=== PATIENT | male | born 1980 | race Caucasian/White ===

== ENCOUNTER 2017-02-22 21:14 | Emergency (ER) | payer OTHER ==
[2017-02-22 21:19] VITALS: BP 130/91
[2017-02-22] MEDS ORDERED: predniSONE TAB* 20 MG PO ONE (22:55)
[2017-02-22] MEDS ORDERED: Methocarbamol TAB* 500 MG PO ONE (22:55)
--- NOTE | 2017-02-22 23:06 | ED ---
Anu Handy Thomas, scribed for Abigail Long MD on 02/22/17 at 2223 . Back Pain - HPI Summary HPI Summary: The pt is a 36 y/o M accompanied by his fiance presenting to the ED c/o low back pain that began today at 20:45. States he was just bending down when the pain started, no trauma. The pain radiates to the L leg. The pt rates the pain 10/10. The pain is alleviated by nothing. The pain is aggravated by movement. Pt additionally c/o L leg numbness. Pt denies hematuria, dysuria, abd pain, N/ V. No fever, no incontinence. The pt did not take any medications for the pain MOLDER VACUUM. The patient is previously healthy and denies a PMHx. PSHx: rotator cuff repair L shoulder, appendectomy, inguinal hernia on R side, tendon repair right forearm. SHx: rare alcohol, no illicit drugs, smoker, works at [employer]. FHx: CA, thyroid problems. The pt was seen 02/22/17 "at the hospital" and prescribed tramadol #15 tabs per [facility]. Pt had to be prompted to tell me he had this prescription, states it was for his neck. States he didn't take them because they don't work. States he is allergic to ASA and demerol and that demerol gives him anaphylactic shock. - History of Current Complaint Chief Complaint: EDBackInjuryPain Stated Complaint: BACK INJURY Time Seen by Provider: 02/22/17 22:10 Hx Obtained From: Patient, Family/Flame Burner - diego Hollins Onset/Duration: Sudden Onset Onset/Duration: Started Hours Ago - 21:00, Atraumatic, Still Present Timing: Constant Back Pain Location: Is Discrete @ - left lumbar paraspinous Severity Initially: Severe Severity Currently: Severe Pain Intensity: 10 Pain Scale Used: 0-10 Numeric Character: Sharp, Spasmodic Aggravating Symptom(s): Movement Alleviating Symptom(s): Nothing Associated Signs And Symptoms: Positive: Numbness - L leg. Negative: Fever, Abdominal Pain, Other - NEG: hematuria, dysuria, N/V - Risk Factors AAA Risk Factors: Negative TAD Risk Factors: Negative Cauda Equina Risk Factors: Negative Epidural Abscess Risk Factors: Negative - Allergies/Home Medications Allergies/Adverse Reactions: Allergies Allergy/AdvReac Type Severity Reaction Status Date / Time Aspirin Allergy Hives Verified 02/22/17 21:29 Meperidine [From Demerol HCl] Allergy Anaphylatic Verified 02/22/17 21:29 Shock PMH/Surg Hx/FS Hx/Imm Hx Previously Healthy: Yes Respiratory History: Denies: Hx Chronic Obstructive Pulmonary Disease (COPD) Sensory History: Denies: Hx Legally Blind - Surgical History Surgery Procedure, Year, and Place: rotator cuff sx L shoulder, appy, inguinal hernia R side, tendon repair RFA - Immunization History Date of Tetanus Vaccine: utd Date of Influenza Vaccine: none Infectious Disease History: No Infectious Disease History: Denies: Traveled Outside the [place] in Last 30 Days - Family History Known Family History: Positive: Other - POS: CA, "thyroid problems" - Social History Occupation: Employed Full-time Alcohol Use: Rare Substance Use Type: Reports: None Smoking Status (MU): Smoker, Current Status Unknown Review of Systems Constitutional: Negative Negative: Fever Eyes: Negative ENT: Negative Cardiovascular: Negative Respiratory: Negative Gastrointestinal: Negative Negative: Abdominal Pain, Vomiting, Nausea Genitourinary: Negative Negative: dysuria, hematuria Positive: Other - POS: back pain that radiates to L leg Skin: Negative Positive: Numbness - L leg Psychological: Normal All Other Systems Reviewed And Are Negative: Yes Physical Exam Triage Information Reviewed: Yes Vital Signs On Initial Exam: Initial Vitals Temp Pulse Resp BP Pulse Ox 98.8 F 76 16 130/91 100 02/22/17 21:17 02/22/17 21:17 02/22/17 21:17 02/22/17 21:17 02/22/17 21:17 Vital Signs Reviewed: Yes Appearance: Positive: Well-Appearing, Well-Nourished, Pain Distress Skin: Positive: Warm, Skin Color Reflects Adequate Perfusion Head/Face: Positive: Normal Head/Face Inspection Eyes: Positive: Conjunctiva Clear ENT: Positive: Normal ENT inspection Neck: Positive: Supple Respiratory/Lung Sounds: Positive: Clear to Auscultation, Breath Sounds Present , Other - No respiratory distress Cardiovascular: Positive: RRR, Pulses are Symmetrical in both Upper and Lower Extremities, Other - Brisk cap refill. Negative: Rub Abdomen Description: Positive: Nontender, Soft. Negative: Splenomegaly Musculoskeletal: Positive: Strength/ROM Intact, Other - Stands in stooped posture. Palpable spasm to L paraspinal muscles. Able to walk on heels and toes. Neurological: Positive: Sensory/Motor Intact, Alert, Oriented to Person Place, Time, Reflexes Intact, Abnormal Gait - stooped posture, Speech Normal, Other - Reflexes 2+ in ankles, knees. Psychiatric: Positive: Normal - [place] Coma Scale Coma Scale Total: 15 Diagnostics - Vital Signs Vital Signs Temp Pulse Resp BP Pulse Ox 02/22/17 21:24 98.8 F 76 16 130/91 100 02/22/17 21:17 98.8 F 76 16 130/91 100 - Laboratory Lab Statement: Any lab studies that have been ordered have been reviewed, and results considered in the medical decision making process. Back Pain Course/Dx - Course Assessment/Plan: The pt is a 36 y/o M accompanied by his fiance presenting to the ED c/o low back pain that began today at 20:45. The pain radiates to the L leg. The pt rates the pain 10/10. The pain is alleviated by nothing. The pain is aggravated by movement. Pt additionally c/o L leg numbness. Pt denies hematuria, dysuria, abd pain, N/V. The pt did not take any medications for the pain MOLDER VACUUM. The patient is previously healthy and denies a PMHx. PSHx: rotator cuff repair L shoulder, appendectomy, inguinal hernia on R side, tendon repair RFA. SHx: rare alcohol, no illicit drugs, smoker, works at [employer]. FHx: [place], thyroid problems. The pt was seen 4 days ago and prescribed tramadol. Patient s medication reviewed this visit. Blood pressure noted. Allergies noted. Checked I-STOP. Pt was prescribed Tramadol 50mg 4 days ago by Willian Howe NP. Most recent controlled drug prescription before that was 11/27/2016, Percocet. The patient was given robaxin and prednisone in the ED. Given a work note. Patient is diagnosed with back pain. The pt is also diagnosed with tobacco abuse disorder. The pt is also diagnosed with high blood pressure without a diagnosis of hypertension. Patient will be discharged with follow up at [facility] [place] [facility]. He was discharged with Robaxin and medrol dosepak. He was told that he cannot take tramadol and robaxin simultaneously. Pt is agreeable with this plan. - Diagnoses Provider Diagnoses: Tobacco abuse disorder, Elevated BP without diagnosis of hypertension, Back pain Discharge - Discharge Plan Condition: Stable Disposition: HOME Prescriptions: Methocarbamol TAB* [Robaxin 500 MG TAB*] 1,000 mg PO Q6H PRN #40 tab PRN Reason: Pain Methylprednisolone [Medrol Dosepak 4 MG*] 4 mg PO .SEE SANGEETA INSTRUCTION #1 sangeeta Patient Education Materials: How to Stop Smoking (ED), Acute Low Back Pain (ED) , Hypertension (ED), Back Pain (ED) Forms: *Work Release Referrals: [facility] [Outside] - 2 Days Additional Instructions: There is a medication interaction with robaxin and tramadol, so you should not take these medications together. Take one or the other up to four times a day as needed for pain. You may safely take the steroids with either of these meds. Return to the ER if you have new or worsening symptoms. The documentation as recorded by the Anu baires Thomas accurately reflects the service I personally performed and the decisions made by , Abigail Long MD.
== END 2017-02-22 23:37 | disposition home or self-care (01) ==
LOC: ED 21:14
DX: R03.0 Elevated blood-pressure reading, without diagnosis of hypertension (principal); M54.9 Dorsalgia, unspecified; F17.210 Nicotine dependence, cigarettes, uncomplicated
CPT/HCPCS: 99282; A9270-GY; J7512